=== PATIENT | female | born 1960 | race Caucasian/White ===

== ENCOUNTER 2023-12-08 16:00 | Inpatient (IN) | payer MEDICAID, OTHER ==
[~2023-12-08] VITALS: Ht 165.1 cm; Wt 63.5 kg
[2023-12-08 17:17] LABS: Basophils # (auto) 0 10 ^3/uL (0-0.2); Basophils % (auto) 0.3 % (0.0-2.0); Eosinophils # (auto) 0.1 10 ^3/uL (0-0.8); Eosinophils % (auto) 0.4 % (0.0-7.0); Lymphocytes # (auto) 2.5 10 ^3/uL (0.4-5.4); Lymphocytes % (auto) 13.6 % (10.0-50.0); Mean Corpuscular Hemoglobin 31.7 pg (28.0-32.0); Mean Corpuscular Hgb Conc. 35.9 g/dL (32.0-36.0); Mean Corpuscular Volume 88.3 fL (80.0-100.0); Monocytes # (auto) 1.3 10 ^3/uL (0-1.3); Monocytes % (auto) 7.3 % (0.0-12.0); Neutrophils # (auto) 14.6 10 ^3/uL (1.6-8.6); Neutrophils % (auto) 78.4 % (37.0-80.0); Red Blood Cells 4.42 10^6/uL (4.0-5.20); Red Cell Distribution Width 12.9 % (11.8-14.3); White Blood Cell 18.6 10^3/uL (4.4-10.8)
[2023-12-08 17:30] LABS: Chloride 99 mmol/L (98-107); Potassium 2.7 mmol/L (3.5-5.1); Sodium 135 mmol/L (136-145)
[2023-12-08 17:31] LABS: Anion Gap 14 (5-15); Calcium 9.1 mg/dL (8.7-10.4); Carbon Dioxide 22 mmol/L (20-30)
[2023-12-08 17:36] LABS: BUN/Creatinine Ratio 16.7 (10.0-20.0); Blood Alcohol < 3.0 mg/dL (<10); Blood Urea Nitrogen 14 mg/dL (9-23); Glucose 295 mg/dL (74-106)
[2023-12-08] MEDS: SODIUM CHLORIDE 0.9% 1,000 ML IVB ONE (18:53)
[2023-12-08] MEDS: SODIUM CHLORIDE 0.9% 1,000 ML IV ONE (19:45)
[2023-12-09] VITALS: PULSE 98; RESP 16; O2SAT 97
[2023-12-09 01:12] LABS: Urine Bacteria None Seen /hpf (None Seen)
[2023-12-09 01:22] LABS: Urine Blood Negative /uL (Negative); Urine Clarity Clear (Clear); Urine Color Yellow (Yellow); Urine Hyaline Cast FEW /lpf (0 - 2); Urine Mucus FEW (None Seen); Urine Protein, UAD 2+ (Negative); Urine Specific Gravity 1.028 (1.001-1.035); Urine Urobilinogen Normal (Negative); Urine WBC 97 /hpf (0 - 5)
[2023-12-09 01:30] LABS: Amphetamine Screen, Urine Neg (NEGATIVE); Barbiturate Scree,Urine Neg (NEGATIVE); Benzodiazephine Screen, Urine Neg (NEGATIVE); Cannabinoid Screen, Urine Pos (NEGATIVE); Cocaine Screen, Urine Neg (NEGATIVE); Opiate Scree,Urine Neg (NEGATIVE); Phencyclidine Screen, Urine Neg (NEGATIVE)
[2023-12-09] MEDS: POTASSIUM CHL 20MEQ/100ML 100 ML IV ONE (03:00)
[2023-12-09] MEDS: cefTRIAXone 1GM/50ML D5W 50 ML IV ONE (03:00)
[2023-12-09] MEDS ORDERED: ONDANSETRON HCL 4 MG/2 ML VIAL IV PRN (03:00)
[2023-12-09] MEDS ORDERED: DEXTROSE (50%) 50ML SYRG IV PRN (07:00)
[2023-12-09] MEDS: ACCU-CHEK COMFORT CURVE STRIP VI SCH (07:03)
[2023-12-09] MEDS: InsuLIN REG 1unit/0.01ml Soln (100units/ml) SC SCH (07:22)
[2023-12-09 08:00] VITALS: PULSE 101; RESP 16; O2SAT 97
[2023-12-09 09:07] LABS: Basophils # (auto) 0.1 10 ^3/uL (0-0.2); Basophils % (auto) 0.4 % (0.0-2.0); Eosinophils # (auto) 0.2 10 ^3/uL (0-0.8); Eosinophils % (auto) 1.3 % (0.0-7.0); Hematocrit 37.7 % (36.0-46.0); Hemoglobin 13.1 g/dL (12.2-16.2); Lymphocytes # (auto) 2.7 10 ^3/uL (0.4-5.4); Lymphocytes % (auto) 18.4 % (10.0-50.0); Mean Corpuscular Hemoglobin 31.2 pg (28.0-32.0); Mean Corpuscular Hgb Conc. 34.8 g/dL (32.0-36.0); Mean Corpuscular Volume 89.4 fL (80.0-100.0); Monocytes % (auto) 7.1 % (0.0-12.0); Neutrophils # (auto) 10.6 10 ^3/uL (1.6-8.6); Neutrophils % (auto) 72.8 % (37.0-80.0); Nucleated Red Blood Cells % 0.2 %; Red Blood Cells 4.22 10^6/uL (4.0-5.20); Red Cell Distribution Width 12.9 % (11.8-14.3); White Blood Cell 14.6 10^3/uL (4.4-10.8)
[2023-12-09 09:15] LABS: Albumin 3.7 g/dL (3.2-4.8); Alkaline Phosphatase 113 U/L (46-116); Anion Gap 9 (5-15); Aspartate Aminotransferase 11 U/L (13-40); BUN/Creatinine Ratio 28.1 (10.0-20.0); Bilirubin, Total 0.4 mg/dL (0.2-1.0); Blood Urea Nitrogen 18 mg/dL (9-23); Calcium 8.6 mg/dL (8.7-10.4); Carbon Dioxide 24 mmol/L (20-30); Chloride 106 mmol/L (98-107); Creatine Kinase IFCC 101 U/L (34-145); Glucose 197 mg/dL (74-106); Phosphorus 1.9 mg/dL (2.4-5.1); Potassium 3.2 mmol/L (3.5-5.1); Sodium 139 mmol/L (136-145)
[2023-12-09] MEDS ORDERED: LACTATED RINGER'S 1,000 ML IV SCH (09:15)
[2023-12-09 09:18] LABS: Alanine Aminotransferase < 9 U/L (7-40)
[2023-12-09] MEDS ORDERED: LORazepam 2MG/ML-1ML VIAL IV PRN (09:30)
[2023-12-09] MEDS ORDERED: POTASSIUM CHLORIDE 40 MEQ, LIDOCAINE 1% (LOCAL ANESTH.) 4 ML in SODIUM CHL 0.9% 250 ML IV ONE (09:45)
[2023-12-09] MEDS: POTASSIUM EFFERVESENT TAB 25 MEQ PO ONE (09:45)
[2023-12-09 09:48] LABS: Triglycerides 153 mg/dL (< 150)
[2023-12-09 09:49] LABS: LDL Cholesterol 220 mg/dL (< 100)
[2023-12-09 09:50] LABS: Cholesterol 285 mg/dL (< 200); HDL Cholesterol 42 mg/dL (40-59)
[2023-12-09] MEDS ORDERED: amLODIPine BESYLATE 5 MG TAB PO SCH (10:00)
[2023-12-09] MEDS: ASPirin 81 mg TAB PO SCH (10:00)
[2023-12-09 10:44] LABS: INR 1.04 (0.9-1.15); Partial Thromboplastin Time 25.1 SEC (24.5-34.5)
[2023-12-09 12:43] VITALS: PULSE 103; RESP 15; O2SAT 95
[2023-12-09] MEDS: LACTATED RINGER'S 1,000 ML IV SCH (13:10)
[2023-12-09] MEDS: POTASSIUM PHOSPHATE 26.4 MEQ in SODIUM CHL 0.9% 100 ML IV ONE (13:20)
[2023-12-09 19:40] VITALS: RESP 15; O2SAT 94
[2023-12-09] MEDS: ATORVASTATIN 20 MG TAB PO SCH (22:30)
[2023-12-09] MEDS: hydrALAZINE HCL 20 MG/ML VL IV SCH (23:55)
[2023-12-10] MEDS: cefTRIAXone 1GM/50ML D5W 50 ML IV SCH (03:53)
[2023-12-10 08:42] LABS: Basophils # (auto) 0 10 ^3/uL (0-0.2); Basophils % (auto) 0.4 % (0.0-2.0); Eosinophils # (auto) 0.2 10 ^3/uL (0-0.8); Eosinophils % (auto) 2.1 % (0.0-7.0); Hematocrit 39.4 % (36.0-46.0); Hemoglobin 14.1 g/dL (12.2-16.2); Lymphocytes # (auto) 2.5 10 ^3/uL (0.4-5.4); Lymphocytes % (auto) 22.7 % (10.0-50.0); Mean Corpuscular Hemoglobin 32.3 pg (28.0-32.0); Mean Corpuscular Hgb Conc. 35.8 g/dL (32.0-36.0); Mean Corpuscular Volume 90.1 fL (80.0-100.0); Monocytes # (auto) 0.8 10 ^3/uL (0-1.3); Monocytes % (auto) 6.7 % (0.0-12.0); Neutrophils # (auto) 7.6 10 ^3/uL (1.6-8.6); Neutrophils % (auto) 68.1 % (37.0-80.0); Nucleated Red Blood Cells % 0.1 %; Red Blood Cells 4.38 10^6/uL (4.0-5.20); Red Cell Distribution Width 12.9 % (11.8-14.3); White Blood Cell 11.2 10^3/uL (4.4-10.8)
[2023-12-10 08:58] LABS: Albumin 3.7 g/dL (3.2-4.8); Alkaline Phosphatase 107 U/L (46-116); Anion Gap 7 (5-15); Aspartate Aminotransferase 12 U/L (13-40); BUN/Creatinine Ratio 19.1 (10.0-20.0); Bilirubin, Total 0.4 mg/dL (0.2-1.0); Blood Urea Nitrogen 9 mg/dL (9-23); Calcium 8.7 mg/dL (8.7-10.4); Carbon Dioxide 26 mmol/L (20-30); Chloride 103 mmol/L (98-107); Glucose 158 mg/dL (74-106); Potassium 2.7 mmol/L (3.5-5.1); Sodium 136 mmol/L (136-145); Total Protein 6.3 g/dL (5.7-8.2)
[2023-12-10 09:00] LABS: Alanine Aminotransferase < 9 U/L (7-40)
[2023-12-10 09:10] VITALS: PULSE 105; RESP 20; O2SAT 96
[2023-12-10] MEDS: POTASSIUM CHLORIDE 40 MEQ, LIDOCAINE 1% (LOCAL ANESTH.) 4 ML in SODIUM CHL 0.9% 250 ML IV ONE (09:30)
[2023-12-10] MEDS: POTASSIUM EFFERVESENT TAB 25 MEQ PO ONE ×2 (09:52→14:01)
[2023-12-10] MEDS: LACTATED RINGER'S 1,000 ML IV SCH (13:55)
[2023-12-10 18:35] VITALS: BP 148/89; PULSE 92; TEMP 97.8; O2SAT 97
[2023-12-10 18:40] VITALS: PULSE 92; RESP 17; O2SAT 96
[2023-12-10 20:00] VITALS: PULSE 94; RESP 16
[2023-12-10 21:00] VITALS: BP 162/79; PULSE 94; RESP 16; TEMP 97.5; O2SAT 95
[2023-12-10] MEDS: dilTIAZem 25 MG/5 ML VIAL IV ONE (23:30)
[2023-12-11] VITALS (8 sets, daily range): BP systolic 140–177; BP diastolic 71–102; PULSE 72–90; RESP 16–18; TEMP 97.6–99.5; O2SAT 96–98
[2023-12-11] MEDS: cloNIDine HCL 0.1 MG TAB PO ONE (06:54)
[2023-12-11 06:58] LABS: Albumin 3.4 g/dL (3.2-4.8); Alkaline Phosphatase 102 U/L (46-116); Anion Gap 6 (5-15); Aspartate Aminotransferase 9 U/L (13-40); BUN/Creatinine Ratio 18.4 (10.0-20.0); Blood Urea Nitrogen 9 mg/dL (9-23); Calcium 8.3 mg/dL (8.7-10.4); Carbon Dioxide 26 mmol/L (20-30); Chloride 104 mmol/L (98-107); Glucose 186 mg/dL (74-106); Magnesium 1.8 mg/dL (1.6-2.6); Potassium 3.1 mmol/L (3.5-5.1); Sodium 136 mmol/L (136-145)
[2023-12-11 06:59] LABS: Bilirubin, Total 0.5 mg/dL (0.2-1.0); Phosphorus 1.8 mg/dL (2.4-5.1); Total Protein 5.8 g/dL (5.7-8.2)
[2023-12-11 07:08] LABS: Basophils # (auto) 0 10 ^3/uL (0-0.2); Basophils % (auto) 0.7 % (0.0-2.0); Eosinophils # (auto) 0.3 10 ^3/uL (0-0.8); Eosinophils % (auto) 4.7 % (0.0-7.0); Hematocrit 34.8 % (36.0-46.0); Hemoglobin 12.4 g/dL (12.2-16.2); Lymphocytes # (auto) 2.6 10 ^3/uL (0.4-5.4); Lymphocytes % (auto) 36.3 % (10.0-50.0); Mean Corpuscular Hemoglobin 31.1 pg (28.0-32.0); Mean Corpuscular Hgb Conc. 35.6 g/dL (32.0-36.0); Mean Corpuscular Volume 87.4 fL (80.0-100.0); Monocytes # (auto) 0.5 10 ^3/uL (0-1.3); Monocytes % (auto) 7.6 % (0.0-12.0); Neutrophils # (auto) 3.6 10 ^3/uL (1.6-8.6); Neutrophils % (auto) 50.7 % (37.0-80.0); Nucleated Red Blood Cells % 0.1 %; Red Blood Cells 3.99 10^6/uL (4.0-5.20); White Blood Cell 7.2 10^3/uL (4.4-10.8)
[2023-12-11 07:09] LABS: Alanine Aminotransferase < 9 U/L (7-40)
[2023-12-11] MEDS: POTASSIUM EFFERVESENT TAB 25 MEQ GT ONE (11:14)
[2023-12-11] MEDS: LIDOCAINE 5% TOPICAL PATCH TOP ONE (11:15)
[2023-12-11] MEDS: POTASSIUM PHOSPHATE 26.4 MEQ in SODIUM CHL 0.9% 100 ML IV ONE (11:15)
[2023-12-11] MEDS: LOSARTAN POTASSIUM 50 MG TAB PO ONE (13:15)
[2023-12-11] MEDS: MAGNESIUM SULFATE 1GM/100ML 100 ML IV ONE (16:38)
[2023-12-11] MEDS ORDERED: IOHEXOL 350 MG/ML 100ML IJ ONE (16:56)
[2023-12-11] MEDS: hydrALAZINE HCL 20 MG/ML VL IV PRN (21:01)
[2023-12-12] VITALS (15 sets, daily range): BP systolic 136–208; BP diastolic 79–109; PULSE 73–105; RESP 16–24; TEMP 97.2–98.4; O2SAT 93–99
[2023-12-12] MEDS: INSULIN LANTUS (GLARGINE) 1 /0.01ml (100units/ml) SC SCH (09:45)
[2023-12-12] MEDS ORDERED: amLODIPine BESYLATE 5 MG TAB PO SCH (10:00)
[2023-12-12] MEDS: amLODIPine BESYLATE 5 MG TAB PO SCH (10:25)
[2023-12-12] MEDS: hydroCHLOROthiazide 25 MG TAB PO SCH (10:25)
[2023-12-12] MEDS: LOSARTAN POTASSIUM 50 MG TAB PO SCH (10:26)
[2023-12-12 10:44] LABS: Basophils # (auto) 0 10 ^3/uL (0-0.2); Basophils % (auto) 0.5 % (0.0-2.0); Eosinophils # (auto) 0.2 10 ^3/uL (0-0.8); Eosinophils % (auto) 2.5 % (0.0-7.0); Hematocrit 39.8 % (36.0-46.0); Hemoglobin 14.3 g/dL (12.2-16.2); Lymphocytes # (auto) 2.9 10 ^3/uL (0.4-5.4); Lymphocytes % (auto) 37.7 % (10.0-50.0); Mean Corpuscular Hemoglobin 31.5 pg (28.0-32.0); Mean Corpuscular Hgb Conc. 35.9 g/dL (32.0-36.0); Mean Corpuscular Volume 87.8 fL (80.0-100.0); Monocytes # (auto) 0.6 10 ^3/uL (0-1.3); Monocytes % (auto) 8.1 % (0.0-12.0); Neutrophils # (auto) 3.9 10 ^3/uL (1.6-8.6); Neutrophils % (auto) 51.2 % (37.0-80.0); Nucleated Red Blood Cells % 0.1 %; Red Blood Cells 4.54 10^6/uL (4.0-5.20); Red Cell Distribution Width 12.8 % (11.8-14.3); White Blood Cell 7.6 10^3/uL (4.4-10.8)
[2023-12-12 10:59] LABS: INR 1.02 (0.9-1.15); Partial Thromboplastin Time 25.9 SEC (24.5-34.5); Prothrombin Time 10.8 sec (9.3-11.8)
[2023-12-12 11:04] LABS: Chloride 105 mmol/L (98-107); Potassium 3.6 mmol/L (3.5-5.1); Sodium 136 mmol/L (136-145)
[2023-12-12 11:05] LABS: Anion Gap 5 (5-15); Calcium 8.8 mg/dL (8.7-10.4); Carbon Dioxide 26 mmol/L (20-30)
[2023-12-12 11:10] LABS: Blood Urea Nitrogen 8 mg/dL (9-23); Glucose 183 mg/dL (74-106)
[2023-12-12] MEDS: ONDANSETRON HCL 4 MG/2 ML VIAL IV ONE (13:00)
[2023-12-12] MEDS: LIDOCAINE VISCOUS 2% 15ML UD PO ONE (13:00)
[2023-12-12] MEDS: fentaNYL CITRATE 100 MCG/2 ML VL IV ONE (13:00)
[2023-12-12] MEDS: MIDAZOLAM HCL 2MG/2ML 2ml VIAL (1mg/ml) IV ONE (13:00)
[2023-12-13 04:52] VITALS: BP 160/107; PULSE 90; RESP 18; TEMP 98.4; O2SAT 96
[2023-12-13] MEDS: ACETAMINOPHEN 325 MG TAB PO PRN (05:48)
[2023-12-13 09:00] VITALS: BP 150/90; PULSE 85; RESP 16; TEMP 97.5; O2SAT 98
[2023-12-13 13:00] VITALS: BP 146/85; PULSE 95; RESP 16; TEMP 97.4; O2SAT 96
[2023-12-13 17:00] VITALS: BP 142/92; PULSE 87; RESP 14; TEMP 98; O2SAT 96
[2023-12-13 20:00] VITALS: PULSE 100; RESP 17; O2SAT 96
[2023-12-13 21:00] VITALS: BP 131/83; PULSE 100; RESP 17; TEMP 98.7; O2SAT 96
[2023-12-14 01:00] VITALS: BP 112/32; PULSE 60; RESP 17; TEMP 98.7; O2SAT 94
[2023-12-14 09:00] VITALS: BP 123/84; PULSE 95; RESP 20; TEMP 97.4; O2SAT 97
[2023-12-14] MEDS: INSULIN LANTUS (GLARGINE) 1 /0.01ml (100units/ml) SC ONE (11:45)
[2023-12-14 13:00] VITALS: BP 135/84; PULSE 91; RESP 18; TEMP 97.9; O2SAT 97
[2023-12-14] MEDS ORDERED: DEXTROSE (50%) 50ML SYRG IV PRN (13:45)
[2023-12-14 16:54] VITALS: BP 123/74; PULSE 100; RESP 18; TEMP 98; O2SAT 96
[2023-12-14] MEDS: CIPROFLOXACIN HCL 500 MG TAB PO ONE (17:05)
[2023-12-14] MEDS: ACCU-CHEK COMFORT CURVE STRIP VI SCH (18:28)
[2023-12-14] MEDS: InsuLIN REG 1unit/0.01ml Soln (100units/ml) SC SCH (18:37)
[2023-12-14 20:00] VITALS: PULSE 60; RESP 18; O2SAT 94
[2023-12-14 21:00] VITALS: BP 87/55; PULSE 60; RESP 17; TEMP 97.6; O2SAT 94
[2023-12-14] MEDS: CIPROFLOXACIN HCL 500 MG TAB PO SCH (21:40)
[2023-12-14] MEDS ORDERED: CEPHALEXIN 250 MG CAP PO SCH (22:00)
[2023-12-15 05:00] VITALS: BP 122/79; PULSE 104; RESP 16; TEMP 97.8; O2SAT 97
[2023-12-15] MEDS: INSULIN LANTUS (GLARGINE) 1 /0.01ml (100units/ml) SC SCH (06:09)
[2023-12-15 09:00] VITALS: BP 140/87; PULSE 87; RESP 16; TEMP 97.6; O2SAT 96
[2023-12-15] MEDS ORDERED: INSULIN LANTUS (GLARGINE) 1 /0.01ml (100units/ml) SC SCH ×2 (10:00→10:15)
[2023-12-15] MEDS: INSULIN LANTUS (GLARGINE) 1 /0.01ml (100units/ml) SC ONE (11:53)
[2023-12-15 12:59] VITALS: BP 131/82; PULSE 101; RESP 16; TEMP 98.3; O2SAT 97
[2023-12-15] MEDS ORDERED: ASPI-325 PO (13:26)
[2023-12-15] MEDS ORDERED: LOSA-534 PO (13:26)
[2023-12-15] MEDS ORDERED: HYDR25TA5 PO (13:26)
[2023-12-15] MEDS ORDERED: ATOR20TA50 PO (13:26)
[2023-12-15] MEDS ORDERED: INSLISPI SC (13:26)
[2023-12-15] MEDS ORDERED: INSLANTI SC (13:26)
[2023-12-15 17:00] VITALS: BP 91/57; PULSE 104; RESP 14; TEMP 97.8; O2SAT 93
[2023-12-16] MEDS ORDERED: INSULIN LANTUS (GLARGINE) 1 /0.01ml (100units/ml) SC SCH (10:00)
== END 2023-12-15 19:20 | disposition home or self-care (01) | DRG 720 ==
LOC: ER 16:00 → EDBD 16:00 → OVERFLOW 12-09 03:04 → EAST 12-10 18:49
PROVIDERS: ADMIT Internal Medicine; ATTEND Internal Medicine
PROC: 4A10X4Z Monitoring of Central Nervous Electrical Activity, External Approach (ICD-10-PCS; 2023-12-11)
PROC: B24BZZ4 Ultrasonography of Heart with Aorta, Transesophageal (ICD-10-PCS; principal; 2023-12-12)
DX: A41.9 Sepsis, unspecified organism (principal); G93.41 Metabolic encephalopathy; I63.89 Other cerebral infarction; E83.39 Other disorders of phosphorus metabolism; F01.50 Vascular dementia, unspecified severity, without behavioral disturbance, psychotic disturbance, mood disturbance, and anxiety; G40.209 Localization-related (focal) (partial) symptomatic epilepsy and epileptic syndromes with complex partial seizures, not intractable, without status epilepticus; E87.6 Hypokalemia; I10 Essential (primary) hypertension; N39.0 Urinary tract infection, site not specified; F19.10 Other psychoactive substance abuse, uncomplicated; F12.90 Cannabis use, unspecified, uncomplicated; I16.0 Hypertensive urgency; E07.81 Sick-euthyroid syndrome; I65.23 Occlusion and stenosis of bilateral carotid arteries; E78.5 Hyperlipidemia, unspecified; M19.09 Primary osteoarthritis, other specified site; E11.9 Type 2 diabetes mellitus without complications; I70.0 Atherosclerosis of aorta; Z79.82 Long term (current) use of aspirin; Z79.899 Other long term (current) drug therapy; Z79.4 Long term (current) use of insulin
CPT/HCPCS: 36415; 70450; 70496; 70551; 71045; 74018; 80048; 80053; 80061; 80307; 80320; 81001; 82140; 82550; 82607; 82962; 83036; 83605; 83735; 84100; 84443; 84484; 85025; 85610; 85730; 87040; 87086; 87088; 87186; 93005; 93312; 93886; 95819; 97110; 97116; 97163; 97530; 99152; 99291; G0378; J1815; J2001; J2250; J2405; J3480